=== PATIENT | female | born 1980 ===

== ENCOUNTER 2017-08-17 18:27 | Emergency (ER) | payer OTHER ==
[2017-08-17 19:24] VITALS: BP 137/75; PULSE 86; RESP 18; TEMP 98.5; O2SAT 99
[2017-08-17] MEDS ORDERED: Sodium Chloride 0.9% 1,000 ML IV STA (20:25)
[2017-08-17 20:54] LABS: ALB/GLOB RATIO 1.3 (1.0-2.1); ALBUMIN 4.2 g/dL (3.5-5.0); GFR AFRICAN-AMERICAN > 60; GFR NON-AFRICAN AMERICAN > 60
[2017-08-17 20:55] LABS: ALT/SGPT 47 U/L (9-52); AST/SGOT 27 U/L (14-36); BLOOD UREA NITROGEN 10 mg/dl (7-17); CALCIUM 9.5 mg/dL (8.4-10.2); LIPASE 42 U/L (23-300)
[2017-08-17 20:59] LABS: BASO # 0.1 K/uL (0.0-0.2); BASO % 0.4 % (0.0-2.0); EOS # 0.2 K/uL (0.0-0.7); HEMOGLOBIN 12.8 g/dL (12.0-16.0); LYMPH # 3.3 K/uL (1.0-4.3); LYMPH % 19.5 % (20.0-40.0); MEAN CORPUSCULAR HEMOGLOBIN 27.6 pg (27.0-31.0); MEAN CORPUSCULAR HGB CONC 33.3 g/dL (33.0-37.0); MONO # 1.1 K/uL (0.0-0.8); MONO % 6.5 % (0.0-10.0); NEUT # 12.3 K/uL (1.8-7.0); NEUT % 72.6 % (50.0-75.0); RBC 4.63 Mil/uL (3.80-5.20); WHITE BLOOD COUNT 16.9 K/uL (4.8-10.8)
--- NOTE | 2017-08-17 21:15 | ED PDOC ---
HPI: Abdomen Time Seen by Provider: 08/17/17 20:14 Chief Complaint (Nursing): GI Problem Chief Complaint (Provider): Abdominal pain History Per: Patient History/Exam Limitations: no limitations Additional Complaint(s): Pt reports abdominal pain X 3 weeks, started in lower abdomen and now in epigastrium, associated with nausea and vomiting X 3 days. Denies fever, CP, SOB, constipation, diarrhea, dysuria, hematuria, vaginal bleeding, vaginal discharge. Past Medical History Reviewed: Nursing Documentation, Vital Signs Vital Signs: Last Vital Signs Temp 98.5 F 08/17/17 19:20 Pulse 86 08/17/17 19:20 Resp 18 08/17/17 19:20 BP 137/75 08/17/17 19:20 Pulse Ox 99 08/17/17 19:20 - Medical History PMH: No Chronic Diseases - Surgical History Surgical History: No Surg Hx - Family History Family History: States: Unknown Family Hx - Living Arrangements Living Arrangements: Alone - Social History Current smoker - smoking cessation education provided: No Alcohol: None - Allergies Allergies/Adverse Reactions: Allergies Allergy/AdvReac Type Severity Reaction Status Date / Time Penicillins Allergy RASH Verified 08/17/17 19:20 Review of Systems Constitutional: Negative for: Fever, Chills Cardiovascular: Negative for: Chest Pain, Palpitations Respiratory: Negative for: Cough, Shortness of Breath Gastrointestinal: Positive for: Nausea, Vomiting, Abdominal Pain. Negative for : Diarrhea, Hematemesis Genitourinary Female: Negative for: Dysuria, Hematuria, Vaginal Discharge, Vaginal Bleeding Musculoskeletal: Negative for: Neck Pain, Back Pain Skin: Negative for: Rash, Lesions Neurological: Negative for: Headache, Dizziness Physical Exam - Reviewed Nursing Documentation Reviewed: Yes Vital Signs Reviewed: Yes - Physical Exam Appears: Positive for: Well, No Acute Distress Skin: Positive for: Normal Color, Warm, Dry Eye Exam: Positive for: Normal appearance, EOMI, PERRL Cardiovascular/Chest: Positive for: Regular Rate, Rhythm Respiratory: Positive for: Normal Breath Sounds Gastrointestinal/Abdominal: Positive for: Bowel Sounds, Soft, Tenderness ( Epigastric). Negative for: Distended, Guarding, Rebound Back: Positive for: Normal Inspection. Negative for: L CVA Tenderness, R CVA Tenderness Extremity: Positive for: Normal ROM Neurologic/Psych: Positive for: Alert, Oriented - Laboratory Results Result Diagrams: 08/17/17 20:41 - ECG O2 Sat by Pulse Oximetry: 99 Medical Decision Making Medical Decision Makin yo with epigastric pain, nausea and vomiting. - labs - UA - urine - Pepcid - Zofran - IVF Disposition - Disposition
--- NOTE | 2017-08-17 23:55 | ED PDOC ---
- Laboratory Results Result Diagrams: 08/17/17 20:41 08/17/17 20:41 - ECG O2 Sat by Pulse Oximetry: 99 Medical Decision Making Medical Decision Makin Patient signed out to me from Dr. Fofana pending US. 0122 US ABDOMEN FINDINGS: Liver: Enlarged, 18.6 cm. Fatty infiltration. No mass. No intrahepatic ductal dilatation. Gallbladder: Mobile nonshadowing echogenic material. No wall thickening. No pericholecystic fluid. No sonographic Xie's sign. Common bile duct: No dilatation. No stones. Pancreas: Unremarkable as visualized. Right kidney: Normal echogenicity. No hydronephrosis. IMPRESSION: 1. Gallbladder sludge and/or tiny nonshadowing gallstones. 2. Incidental/non-acute findings are described above. 0126 US FINDINGS: Gestation: Gestational sac. Two apparent yolk sacs, 0.8 and 0.5 cm. No pole. Mean sac diameter of 2.2 cm, correlating with gestational age of 6 weeks 5 days. Uterus/cervix: No subchorionic hemorrhage. No cervical dilatation or effacement. Probable nabothian cysts. Ovaries: Normal ovaries. No adnexal masses. Free fluid: No significant free fluid. IMPRESSION: 1. Findings suspicious but not diagnostic of failure. Short-term sonographic followup is recommended. 0137 Patient is stable for discharge home. pt denies pain or bleeding. Will follow up with UTILIZATION MANAGEMENT RN. pt aware of US results. Scribe Attestation: Documented by Fely Martinez acting as a scribe for Fabien Russo MD. Scribe Attestation: All medical record entries made by the Scribe were at my direction and personally dictated by me. I have reviewed the chart and agree that the record accurately reflects my personal performance of the history, physical exam, medical decision making, and the department course for this patient. I have also personally directed, reviewed, and agree with the discharge instructions and disposition. Disposition - Clinical Impression Clinical Impression: - POA Present On Arrival: None - Disposition Referrals: [facility] [Outside] [facility] [Outside] Disposition: Routine/Home Disposition Time: 01:05 Condition: IMPROVED Additional Instructions: follow up with your primary [employer] network architect in 1-2 days return to the ED with any worsening or concerning symptoms. Instructions: (ED) Forms: [facility] (Amharic)
--- NOTE | 2017-08-18 10:29 | US ---
HISTORY: Epigastric pain COMPARISON: None. TECHNIQUE: Sonographic evaluation of the right upper quadrant of the abdomen. FINDINGS: LIVER: Liver is of borderline/mildly enlarged measuring nearly 19 cm in cm in length -CC dimension. . Liver demonstrates smooth contour though increased echotexture suggesting fatty infiltration. Other infiltrative hepatocellular disease process not excluded. . No mass. No intrahepatic bile duct dilatation. GALLBLADDER: The gallbladder is physiologically distended. . There appears to be small mobile calculi/gravel and/or sludge. COMMON BILE DUCT: Common bile duct measures approximately 4.1 mm. No stones. No dilatation. PANCREAS: Unremarkable as visualized. No mass. No ductal dilatation. RIGHT KIDNEY: Right kidney measures approximately the 12.6 x 5.7 x 5.2 cm in length. Normal echogenicity. No calculus, mass, or hydronephrosis. AORTA: No aneurysmal dilatation. IVC: Unremarkable. OTHER FINDINGS: None . IMPRESSION: Findings suggest intraluminal gallbladder tiny calculi/gravel and/or sludge. . No sonographic Xie sign. . The borderline/mild hepatomegaly with increased echotexture suggesting fatty infiltration however other infiltrative hepatocellular disease process not excluded. Clinical correlation recommended. Preliminary report provided by [facility] service
--- NOTE | 2017-08-18 11:18 | US ---
PROCEDURE: Six 1st trimester ultrasound HISTORY: Lower abd pain COMPARISON: None TECHNIQUE: Standard protocol for this study/examination. FINDINGS: LMP: 06/20/2017 Prior examinations from the current : None. TECHNIQUE: Real-time 2D imaging, duplex and color Doppler. FINDINGS: No pole identified. Gestational age 2.2 based on gestational sac measurement 6 weeks 5 days cm Gestational age derived from LMP: 8 weeks 3 days LAUREN based on LMP: 03/27/2018 LAUREN based on biometry: 04/08/2018 Gestational concordance documented Yolk sacs (2) identified Uterus: Unremarkable. No Cervical abnormalities: Negative examination for cervical dilatation or effacement. Closed cervix with multiple nabothian cysts. Subchorionic hemorrhage: None UTERUS: 7.1 x 8.6 x 10.5 cm. ADNEXA: Right: 2.2 x 3.4 x 3.6 cm. Multiple subcentimeter follicles. Normal Doppler arterial waveform documented. Left: 2 x 3.3 x 3.4 cm. Multiple subcentimeter follicles. Normal Doppler arterial waveform documented Fluid in the cul-de-sac: None IMPRESSION: Well-formed gestational sac with 2 yolk sacs. No pole or ectopic gestation identified. Concordant results (preliminary interpretation) provided by [facility]. Procedure Completed: 00:38 Preliminary ([facility]) Report: Dictated and Authenticated: 01:26 Final Interpretation: 11:16 August 18, 2017.
== END 2017-08-18 02:15 | disposition home or self-care (01) ==
LOC: H.ER 18:27
DX: O26.891 Other specified pregnancy related conditions, first trimester (principal); Z3A.01 Less than 8 weeks gestation of pregnancy
CPT/HCPCS: 76705; 76815; 76817; 80053; 81025; 83690; 84702; 85025; 96361; 96374; 99282; J2765; J7040